=== PATIENT | male | born 1985 | race Caucasian/White ===

== ENCOUNTER 2016-12-15 18:57 | Emergency (ER) | payer OTHER ==
[2016-12-15 19:08] VITALS: BP 167/88; PULSE 100; TEMP 98.9; BMI 27.3
--- NOTE | 2016-12-15 19:21 | PDOC ---
History of Present Illness - General Chief Complaint: Laceration Stated Complaint: JOB INJURY Time Seen by Provider: 12/15/16 19:12 History Source: Patient Exam Limitations: No Limitations - History of Present Illness Initial Comments: 12/15/16 19:19 [place] [employer] duty Was walking down staircase and scraped left fifth digit on nail protruding from railing. States bled, and came to ER for evaluation. Was uncertain as to his tetanus status. 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 trip to [place] Severity: Yes: mild Location: reports: hands Respiratory Risk Factors: reports: no cause identified Associated Symptoms: reports: denies symptoms Past History - Travel Traveled outside of the country in the last 30 days: No Close contact w/someone who was outside of country & ill: No - Past Medical History Allergies/Adverse Reactions: Allergies Allergy/AdvReac Type Severity Reaction Status Date / Time No Known Allergies Allergy Verified 12/15/16 19:04 Home Medications: Ambulatory Orders Amlodipine Besylate 5 mg PO ASDIR 12/15/16 Anemia: No Asthma: No Cancer: No Cardiac Disorders: No CVA: No COPD: No CHF: No Dementia: No Diabetes: No GI Disorders: No Disorders: No HTN: Yes Hypercholesterolemia: No Liver Disease: No Seizures: No Thyroid Disease: No - Surgical History Abdominal Surgery: No Appendectomy: No Cardiac Surgery: No Cholecystectomy: No Lung Surgery: No Neurologic Surgery: No Orthopedic Surgery: No - Psycho/Social/Smoking Cessation Hx Anxiety: No Suicidal Ideation: No Smoking Status: No Smoking History: Never smoked Have you smoked in the past 12 months: No Number of Cigarettes Smoked Daily: 0 If you are a former smoker, when did you quit?: 2010 Information on smoking cessation initiated: No 'Breaking Loose' booklet given: 04/04/14 Hx Alcohol Use: No Drug/Substance Use Hx: No Substance Use Type: None Hx Substance Use Treatment: No Review of Systems - Review of Systems Able to Perform ROS?: No Is the patient limited Yoruba proficient: No Constitutional: Yes: See HPI. No: Symptoms Reported HEENTM: No: Symptoms Reported Respiratory: No: Symptoms reported Musculoskeletal: Yes: Symptoms Reported Integumentary: Yes: Symptoms Reported, See HPI, Lesions (superficial abrasion to left fifth digit) Neurological: No: Symptoms reported All Other Systems: Reviewed and Negative *Physical Exam - Vital Signs Last Vital Signs Temp Pulse Resp BP Pulse Ox 98.9 F 100 H 20 167/88 99 12/15/16 19:05 12/15/16 19:05 12/15/16 19:05 12/15/16 19:05 12/15/16 19:05 - Physical Exam General Appearance: Yes: Nourished, Appropriately Dressed. 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 Tetanus/diphtheria/ pertussis booster not require today as is up to date *DC/Admit/Observation/Transfer Diagnosis at time of Disposition: Abrasion of finger Qualifiers: Encounter type: initial encounter Qualified Code(s): S60.419A - Abrasion of unspecified finger, initial encounter - Discharge Dispostion Disposition: HOME Condition at time of disposition: Stable Admit: No - Patient Instructions Printed Discharge Instructions: DI for Abrasion Additional Instructions: Rest, keep area elevated. Avoid strenuous activity or exercise until wound is healed Use hot soaks to area to bring more blood to the surface and encourage drainage May change dressings as needed to keep clean - Allow water from shower to wash area thoroughly for 2-3 minutes, and pat dry upon exit of shower and replace dressing. Change his dressing daily until the wound is completely healed. May use Tylenol or Motrin for mild pain relief Return to emergency Department for worsening swelling, pain, redness, fevers as needed
== END 2016-12-15 19:27 | disposition home or self-care (01) ==
LOC: JERFT 18:57
DX: S60.417A Abrasion of left little finger, initial encounter (principal); Y35.91XA Legal intervention, means unspecified, law enforcement official injured, initial encounter; W22.09XA Striking against other stationary object, initial encounter; Y93.9 Activity, unspecified; Y92.9 Unspecified place or not applicable; Y99.0 Civilian activity done for income or pay; I10 Essential (primary) hypertension
CPT/HCPCS: 99281-25

== ENCOUNTER 2017-07-01 08:51 | Emergency (ER) | payer OTHER ==
[2017-07-01 08:59] VITALS: BP 140/83; PULSE 67; TEMP 98; BMI 25.8
[2017-07-01] MEDS ORDERED: IBUPROFEN 600 MG TABLET (FP) PO ONE ×2 (09:38→09:39)
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
== END 2017-07-01 09:49 | disposition home or self-care (01) ==
LOC: JERFT 08:51
DX: S13.4XXA Sprain of ligaments of cervical spine, initial encounter (principal); V49.88XA Car occupant (driver) (passenger) injured in other specified transport accidents, initial encounter; Y92.488 Other paved roadways as the place of occurrence of the external cause; Y93.89 Activity, other specified; Y99.8 Other external cause status
CPT/HCPCS: 99281-25

== ENCOUNTER 2018-09-24 20:51 | Emergency (ER) | payer OTHER ==
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
[2018-09-24 21:01] VITALS: BP 136/88; PULSE 76; TEMP 98; BMI 25.8
[2018-09-24] MEDS ORDERED: IBUPROFEN 600 MG TABLET (FP) PO ONE ×2 (22:14→22:41)
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
== END 2018-09-24 22:51 | disposition home or self-care (01) ==
LOC: JERFT 20:51 → JER 20:51 → JERFT 22:51
DX: M25.572 Pain in left ankle and joints of left foot (principal); Y35.811A Legal intervention involving manhandling, law enforcement official injured, initial encounter; Y93.89 Activity, other specified; Y92.89 Other specified places as the place of occurrence of the external cause; Y99.0 Civilian activity done for income or pay
CPT/HCPCS: 99281-25

== ENCOUNTER 2019-05-11 07:33 | Emergency (ER) | payer OTHER ==
[2019-05-11 07:51] VITALS: BP 144/97; PULSE 72; TEMP 98.1; BMI 25.1
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
[2019-05-11] MEDS ORDERED: IBUPROFEN 600 MG TABLET (FP) PO ONE ×2 (08:12→08:16)
== END 2019-05-11 08:39 | disposition home or self-care (01) ==
LOC: JER 07:33 → JERFT 07:33
DX: S49.82XA Other specified injuries of left shoulder and upper arm, initial encounter (principal); V48.4XXA Person boarding or alighting a car injured in noncollision transport accident, initial encounter; Y92.488 Other paved roadways as the place of occurrence of the external cause; Y93.89 Activity, other specified; Y99.0 Civilian activity done for income or pay
CPT/HCPCS: 73030-TC-LT-FY; 99282-25